=== PATIENT | female | born 1965 | race Caucasian/White ===

== ENCOUNTER 2023-05-05 10:18 | Emergency (ER) | payer MEDICARE, OTHER, SELFPAY ==
[2023-05-05 10:29] VITALS: BP 140/77; PULSE 85; RESP 14; TEMP 36.5; O2SAT 99
--- NOTE | 2023-05-05 10:43 | DI.US.S_ITS ---
PROCEDURE: US PERIPH VENOUS LOW EXTREM LT INDICATIONS: PAIN TECHNIQUE: Real-time imaging, as well as color and pulse Doppler interrogation, were performed of the lower extremity deep veins from the inguinal ligament to the popliteal fossa, with documentation of the visualized calf veins. COMPARISON: None. FINDINGS: The common femoral, femoral, popliteal, and the visualized calf veins are normally compressible, and free of intraluminal thrombus. Color and pulse Doppler demonstrate normal phasic intraluminal flow. There is normal augmentation response to distal compression maneuver. IMPRESSION: No findings of lower extremity deep venous thrombosis. Dictated by: Suzette Vargas M.D. on 05/05/2023 at 11:45 Approved by: Suzette Vargas M.D. on 05/05/2023 at 11:45
[2023-05-05 11:30] VITALS: PULSE 72
--- NOTE | 2023-05-05 11:58 | PC.NURSE ---
[employer] consult placed for Sunday as pt needs assistance in finding PCP and mental health follow up.
--- NOTE | 2023-05-05 12:00 | ED.EXTPRO ---
HPI - Extremity Problem <VICKI Barnett - Last Filed: 05/05/23 12:31> General Chief complaint: Extremity Problem,Nontraumatic Stated complaint: Dizzness, feels not getting blood on lt leg Time Seen by Provider: 05/05/23 11:25 Source: patient Mode of arrival: Ambulatory History of Present Illness HPI Narrative: 57-year-old female, daily smoker, presents to the walk-in clinic with complaints of left leg discomfort and left ear fullness. Patient reports a history of some type of occlusion of her left leg and is concerned she may have developed a blood clot. Patient states that her left ear fullness started the day after she arrived to [place] from [place] and is unable to equalize at this time. Patient able to ambulate without difficulty. Patient denies any alcohol or drugs last evening, slept in her regular bed and got a full 8 hours of sleep. Patient did where her back brace, for which she is never done this in the past, that she received after a injury several years ago. Related Data Allergies Allergy/AdvReac Type Severity Reaction Status Date / Time No Known Drug Allergies Allergy Verified 05/05/23 10:36 Review of Systems <VICKI Barnett - Last Filed: 05/05/23 12:31> Review of Systems Narrative: Narrative: See HPI. GENERAL: Denies chills, fatigue, fever, sweats. HEENT: Denies sinus pain, sore throat, difficulty swallowing, dizziness. Endorses left ear fullness. RESPIRATORY: Denies dyspnea, wheezing, sputum. Endorses occasional cough. CARDIOVASCULAR: Denies chest pain, palpitations, edema. GASTROINTESTINAL: Denies nausea, vomiting, abdominal pain, diarrhea, constipation, loss of control of bowel or bladder. : Denies dysuria, frequency, incontinence, hematuria, urinary retention, flank pain. MSK: Denies weakness, joint pain, or bony pain. Endorses left leg feeling ?strange?. SKIN: Denies rash, skin lesions, or pruritis. NEUROLOGIC: Denies weakness, dizziness, headache, numbness, confusion. PSYCHIATRIC: No concerning psychosocial issues. Patient History <VICKI Barnett - Last Filed: 05/05/23 12:31> Social History Smoking Status: Current every day smoker Smoking Status: Current every day smoker alcohol intake frequency: 0-2 drinks per day Substance Use Type: marijuana Exam <VICKI Barnett - Last Filed: 05/05/23 12:31> Narrative Exam Narrative: Exam Narrative: GENERAL: This is a well-nourished, well-developed patient, in no acute distress. HEAD: Atraumatic. Normocephalic. EYES: Pupils equal round and reactive. Extraocular motions intact. No scleral icterus, injection or drainage. ENT: Nose without bleeding, purulent drainage. Throat without erythema, tonsillar hypertrophy or exudate. Uvula midline. Airway patent. TMs and canals clear, with mild retraction of left. No sinus tenderness. NECK: Trachea midline. No JVD or lymphadenopathy. Nontender. CARDIOVASCULAR: Regular rate and rhythm without murmurs, peripheral pulses intact, cap refill <2 sec. RESPIRATORY: Breath sounds equal and clear bilaterally. No wheezes, rales, or rhonchi. No witnessed cough. No increased respiratory effort. No accessory muscle use. GASTROINTESTINAL: Abdomen soft, non-tender, nondistended without guarding or rebound. No suprapubic pain. MSK: Moves all extremities. Normal range of motion, no clubbing or edema. Neurovascularly intact. No obvious swelling. NEURO: A&O x 3. SKIN: Warm, dry, no rashes or lesions noted. Initial Vital Signs Initial Vital Signs: Vital Signs Temperature 97.7 F 05/05/23 10:29 Pulse Rate 85 05/05/23 10:29 Respiratory Rate 14 05/05/23 10:29 Blood Pressure 140/77 05/05/23 10:29 Pulse Oximetry 99 05/05/23 10:29 Oxygen Delivery Method Room Air 05/05/23 10:29 Reviewed <Mitzi Saldivar DO - Last Filed: 05/06/23 07:38> Initial Vital Signs Initial Vital Signs: Vital Signs Temperature 97.7 F 05/05/23 10:29 Pulse Rate 85 05/05/23 10:29 Respiratory Rate 14 05/05/23 10:29 Blood Pressure 140/77 05/05/23 10:29 Pulse Oximetry 99 05/05/23 10:29 Oxygen Delivery Method Room Air 05/05/23 10:29 Course <VICKI Barnett - Last Filed: 05/05/23 12:31> Orders Ordered: ED Orders 10/21/23 10:40 Consult to [facility] [place] - [employer]ist Stat 05/05/23 10:43 US perip venous low extrem lt Stat Vital Signs Vital signs: Vital Signs - 8 hr 05/05/23 10:29 Temperature 97.7 F Pulse Rate 85 Respiratory Rate 14 Blood Pressure 140/77 Pulse Oximetry 99 Oxygen Delivery Method Room Air <Mitzi Saldivar DO - Last Filed: 05/06/23 07:38> Orders Ordered: ED Orders 05/05/23 10:40 Consult to [facility] [place] - [employer] Specialist Stat 05/05/23 10:43 [facility] venous low extrem lt Stat Vital Signs Vital signs: Vital Signs - 8 hr 05/05/23 10:29 Temperature 97.7 F Pulse Rate 85 Respiratory Rate 14 Blood Pressure 140/77 Pulse Oximetry 99 Oxygen Delivery Method Room Air MDM - Extremity (Nontraumatic) <VICKI Barnett - Last Filed: 05/05/23 12:31> Differential Diagnosis Differential diagnosis: Likely superficial thrombophlebitis, deep vein thrombosis of lower extremity and other (Eustachian tube dysfunction, allergic rhinitis) Imaging Data US - DVT: Radiologist's Impression: Close Vascular Ultrasound (Signed) Suzette Vargas - 05/05/23 [place] [address] Ultrasound Report Signed Patient: Jeni Cabrera MR#: [id number] : 1965 Acct:[id number] Age/Sex: 57 / F Date of Service: 05/05/23 Loc: ED Accession Number: [id number] Procedure: [facility] venous low extrem lt Ordering Provider: Mitzi Saldivar D.O. PROCEDURE: US PERIP VENOUS LOW EXTREM LT INDICATIONS: PAIN TECHNIQUE: Real-time imaging, as well as color and pulse Doppler interrogation, were performed of the lower extremity deep veins from the inguinal ligament to the popliteal fossa, with documentation of the visualized calf veins. COMPARISON: None. FINDINGS: The common femoral, femoral, popliteal, and the visualized calf veins are normally compressible, and free of intraluminal thrombus. Color and pulse Doppler demonstrate normal phasic intraluminal flow. There is normal augmentation response to distal compression maneuver. IMPRESSION: No findings of lower extremity deep venous thrombosis. Dictated by: Suzette Vargas M.D. on 05/05/2023 at 11:45 Approved by: Suzette Vargas M.D. on 05/05/2023 at 11:45 MDM Narrative Medical decision making narrative: 57-year-old female, daily smoker, presents to the emergency department with complaints of left leg pain and left ear fullness. Assessment was encouraging and I suspect the left leg pain may have been from sleeping with her back brace on last evening. Ultrasound was negative and is neurovascularly intact. Recommended hot or cold compresses to the affected area, gentle range of motion stretching exercises, Tylenol or ibuprofen as needed for discomfort. Left ear fullness is attributed to Eustachian tube dysfunction. Will recommend Sudafed or Flonase to resolve symptoms. Discussed plan of care and return precautions with patient, who verbalized understanding was agreeable with course of action. Discharge Plan Departure Patient Disposition: Home Clinical Impression: Acute pain of left lower extremity, Dysfunction of left eustachian tube Instructions: DI for Eustachian Tube Dysfunction-Adult Activity Restrictions/Additional Instructions: *You have been diagnosed with left lower leg pain and left Eustachian tube dysfunction. The ultrasound was negative for any blood clots and I suspect that your left lower leg pain may have been related to sleeping with your back brace. Please continue with hot or cold compresses to the affected site, gentle range of motion stretching exercises, Tylenol or ibuprofen as needed for discomfort. You do have Eustachian tube dysfunction of your left ear and recommend either Flonase nasal spray, 1 spray each nostril in the morning and at night or Sudafed 30 mg every 6 hours as needed. When you try to equalize your left ear, please do not be aggressive, but gently do so. For any worsening symptoms, please feel free to return to the emergency department. We have placed a consult to help you try to find a primary care provider. *What to do: *Please continue to take your regular medications as directed. [ ] New medication prescriptions sent to your pharmacy: [ ] [ ] New medication written as a paper prescription [x ] No new medications given *Please follow up with your primary care provider in 2-3 days, call for an appointment. Let them know you were seen in the Emergency Department and that we ask that you be seen in follow up. We will electronically transmit a record of today's note if your PCP is in our system *If you do not have a primary care provider please contact the [facility] Resource line at [phone]. They will ask some questions about your medical history and help get you set up with a doctor in the community. ? Return to ER if you should have any new, worsening or concerning symptoms, such as worsening pain, severe headache, confusion, chest pain, difficulty breathing, fever greater than 101 F, shaking chills, persistent vomiting to the point that you cannot drink fluids, or other new or worsening symptoms. Stand Alone Forms: Patient Portal/API ED Sign-out <Mitzi Saldivar, - Last Filed: 05/06/23 07:38> Cosign ED Attending Devanature Attestation: I was immediately available in the department for consultation. Documentation has been reviewed.
[2023-05-05 12:39] VITALS: BP 138/70; PULSE 72; RESP 14; O2SAT 99
--- NOTE | 2023-05-07 12:47 | CM.SWNOTE ---
ED [employer] follow up note [employer]AIN DISPENSER receives consult for follow up call to assist patient in getting PCP ED f/u appt. FOUNTAIN DISPENSER calls patient, patient endorses interest in PCP appt. FOUNTAIN DISPENSER calls PCP clinic, it is reported that [facility] clinic has openings. Patient is scheduled for Wednesday 05/[address] Vazquez. FOUNTAIN DISPENSER calls patient, informs them to arrive at 3:45pm, provides details and address. HARRIETT AbelSW
== END 2023-05-05 12:43 | disposition home or self-care (01) ==
PROVIDERS: Emergency Provider Registered Nurse
DX: M79.605 Pain in left leg (principal); H69.92 Unspecified Eustachian tube disorder, left ear
CPT/HCPCS: 93971; 99283

== ENCOUNTER 2023-07-19 17:12 | Emergency (ER) | payer MEDICARE, SELFPAY ==
[2023-07-19 17:39] VITALS: BP 133/75; PULSE 93; RESP 18; TEMP 37.2; O2SAT 98; BMI 34.4
--- NOTE | 2023-07-19 19:20 | DI.RAD.S_ITS ---
PROCEDURE: XR CHEST 2V INDICATIONS: COVID + concerns of lung infections TECHNIQUE: 2 views of the chest were acquired. COMPARISON: None. FINDINGS: Surgical changes and devices: None. Lungs and pleura: Lungs are clear. No pleural effusions or pneumothorax. Mediastinum: Mediastinal contours are normal. Heart size is normal. Bones and chest wall: No suspicious bony abnormalities. Soft tissues appear unremarkable. IMPRESSION: No acute cardiopulmonary abnormality is seen. Dictated by: Juan Mcadams M.D. on 07/19/2023 at 20:00 Approved by: Juan Mcadams M.D. on 07/19/2023 at 20:00
--- NOTE | 2023-07-19 22:55 | ED.URI ---
HPI - URI/Sore Throat General Chief Complaint: Upper Respiratory Symptoms Stated Complaint: 2 positive Covid test Time Seen by Provider: 07/19/23 22:00 Source: patient Mode of arrival: Ambulatory History of Present Illness HPI Narrative: 58-year-old female who presents with cough, nasal congestion general malaise and fatigue for 1 week. Patient reports testing positive for COVID at home. Patient reports history recurrent ?lung infections that require antibiotics as concerned that since she has COVID now will likely have pneumonia in the future. Patient has been taking ibuprofen/acetaminophen for symptom relief. No other complaints or associated symptoms noted. The patient arrives via private vehicle. Patient is ambulatory awake, alert, in no apparent distress and maintaining her own airway. Related Data Previous Rx's Medication Instructions Recorded albuterol sulfate 90 mcg/actuation 2 inh inhalation Q6H PRN shortness 07/19/23 breath activated powder inhaler of breath or wheezing #1 ea amoxicillin 875 mg-potassium 1 tab PO BID #14 tabs 07/19/23 clavulanate 125 mg tablet Allergies Allergy/AdvReac Type Severity Reaction Status Date / Time No Known Drug Allergies Allergy Verified 07/19/23 17:43 Review of Systems Review of Systems Narrative: See HPI for pertinent positives, otherwise review of systems negative Patient History Social History Smoking Status: Current every day smoker Smoking Status: Current every day smoker alcohol intake frequency: 0-2 drinks per day Substance Use Type: marijuana Exam Narrative Exam Narrative: General: Awake, alert, in no apparent distress HEENT: Normocephalic, atraumatic, pupils equal and reactive to light, oropharynx clear, oral mucosa moist Neck: Supple Cardiovascular: 2+ radial bilateral, regular rhythm/rate Pulmonary: Regular respirations, no respiratory distress Abdominal: Soft, nontender, nondistended : Exam deferred Back: Nontender, normal motion Skin: Warm, dry, intact, no rashes Neuro: No focal neurological deficits, moving all 4 extremities equally, normal speech Psych: Normal mood, normal affect Initial Vital Signs Initial Vital Signs: Vital Signs Temperature 99.0 F 07/19/23 17:39 Pulse Rate 93 H 07/19/23 17:39 Respiratory Rate 18 07/19/23 17:39 Blood Pressure 133/75 07/19/23 17:39 Pulse Oximetry 98 07/19/23 17:39 Oxygen Delivery Method Room Air 07/19/23 17:39 Course Orders Ordered: ED Orders 07/19/23 19:20 Chest [XR chest 2V] Stat Vital Signs Vital signs: Vital Signs - 8 hr 07/19/23 17:39 Temperature 99.0 F Pulse Rate 93 H Respiratory Rate 18 Blood Pressure 133/75 Pulse Oximetry 98 Oxygen Delivery Method Room Air MDM - URI/Sore Throat Differential Diagnosis Differential diagnosis: Likely upper respiratory infection, viral infection, bronchitis and influenza MDM Narrative Medical decision making narrative: Patient presents with COVID-19 and concern for developing secondary pneumonia. Augmentin given along with a prescription for albuterol sulfate. Return precautions reviewed. PCP follow-up recommended within 1 week. Patient discharged home in stable condition. Discharge Plan Departure Patient Disposition: Home Clinical Impression: COVID-19 Instructions: DI for COVID-19 (Suspected or Confirmed ) Activity Restrictions/Additional Instructions: Use Afrin as directed as needed for symptom relief Prescriptions: New albuterol sulfate 90 mcg/actuation aerosol powdr breath activated 2 inh inhalation Q6H PRN (Reason: shortness of breath or wheezing) Qty: 1 0RF amoxicillin-pot clavulanate 875-125 mg tablet 1 tab PO BID Qty: 14 0RF Referrals: Miscellaneous,Doctor, MD [Primary Care Provider] - Stand Alone Forms: Patient Portal/API, Work Release Note
--- NOTE | 2023-07-19 23:09 | PC.NURSE ---
Spacer given by this EDRN with training.
[2023-07-19 23:17] VITALS: BP 109/59; PULSE 84; RESP 17; O2SAT 97
== END 2023-07-19 23:17 | disposition home or self-care (01) ==
PROVIDERS: Emergency Provider Emergency Medicine
DX: U07.1 COVID-19 (principal)
CPT/HCPCS: 71046; 99283